=== PATIENT | male | born 2000 ===

== ENCOUNTER 2024-10-27 14:12 | Inpatient (IN) | payer OTHER ==
[~2024-10-27] VITALS: Wt 56.7 kg
[2024-10-27] MEDS ORDERED: HydrOXYzine Pamoate 50 MG Cap PO PRN (14:35)
[2024-10-27] MEDS ORDERED: Melatonin 3 MG Tab PO PRN (14:35)
[2024-10-27] MEDS ORDERED: LORazepam 2 MG Tab PO PRN (14:35)
[2024-10-27] MEDS ORDERED: LORazepam 2 MG/ML 1ML Injection IM PRN ×2 (14:35→16:10)
[2024-10-27] MEDS ORDERED: Ibuprofen 600 MG Tab PO PRN (14:35)
[2024-10-27] MEDS ORDERED: Calcium Carbonate 500 MG Tab Chew PO PRN (14:40)
[2024-10-27] MEDS ORDERED: DiphenhydrAMINE HCl 50 MG/ML 1ML Vial IM PRN (14:40)
[2024-10-27] MEDS ORDERED: Polyethylene Glycol 3350 17 gm PO PRN (14:40)
[2024-10-27] MEDS ORDERED: Ondansetron 4 MG SoluTab MM PRN (14:40)
[2024-10-27] MEDS ORDERED: TraZODone HCl 50 MG Tab PO PRN (14:40)
[2024-10-27] MEDS ORDERED: DiphenhydrAMINE HCl 50 MG Cap PO PRN (14:40)
[2024-10-27] MEDS ORDERED: OLANZapine ODT 10 MG Tab MM PRN (14:40)
[2024-10-27] MEDS ORDERED: Haloperidol 5 MG Tab PO PRN (14:45)
[2024-10-27] MEDS ORDERED: Haloperidol Lactate Inj. 5 MG/ML Injection IM PRN (14:45)
[2024-10-27] MEDS ORDERED: Acetaminophen 325 MG TABLET PO PRN (14:45)
[2024-10-27] MEDS ORDERED: Aluminum Hydroxide 320MG/5ML 473 ML PO PRN (14:45)
[2024-10-27] MEDS ORDERED: SERT50 PO (16:35)
[2024-10-27] MEDS ORDERED: Nicotine Polacrilex 2 MG Gum PO PRN (17:20)
--- NOTE | 2024-10-27 17:58 | NUR ---
SHIFT SUMMARY PT PLEASANT AND COOPERATIVE. DENIES SI, HI, AVTH AT THIS TIME. PT ARRIVED ON UNIT AT 1600, INTERACTING W/ STAFF AND SITTING IN DAYROOM PLAYING SWITCH/WATCHING TV. PT TOOK HOT SHOWER. PT STATES HE USES CANE TO WALK "USUALLY", BUT IS ABLE TO AMBULATE FINE INDEPENDENTLY, PT HAS NOT BEEN USING RAIL OR FALLEN WHILE WALKING. 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 PT DENIED TAKING ANY MEDICATIONS FOR THEM AND HIS LAST ONE WAS "A MONTH AGO". PT STATES TRIGGERING EVENT FOR SI WAS BREAKING UP W/ GIRLFRIEND, PENDING LEGAL TROUBLES, AND HOMELESSNESS.
[2024-10-27 18:22] VITALS: BP 128/75
[2024-10-27 20:19] VITALS: BP 114/72
--- NOTE | 2024-10-28 05:17 | NUR ---
SHIFT SUMMARY Pt is A&O, calm, cooperative, eye contact is appropriate. Pt s stated mood is hell, affect is constricted. Pt denies HI and all hallucinations. Pt endorses having fleeting SI thoughts and promised to contact staff should these thoughts become problematic. Pt endorses knee pain 3/10w DT an injury. He has an MRI scheduled in the near future to determine the damage. Pt stated that the outreach program that placed him in his current motel room is shutting down because of funding losses and that they are trying to find a more permanent housing solution in an apartment. Pt was up to the activity room for snack, but otherwise remained in his room the entire shift. Pt remains on q15m safety checks per unit protocol.
[2024-10-28 06:46] LABS: CHOL/HDL RATIO 3.2; Cholesterol 181 mg/dL (50-200); HDL Cholesterol 57 mg/dL (>39); LDL/HDL RATIO 1.9; Low Density Lipoprotein Chol 106 mg/dL (0-110); Triglycerides 91 mg/dL (30-140); Very Low Density Lipoprot Chol 18 mg/dL (6-28)
[2024-10-28] MEDS ORDERED: Multivitamins 1 Tab PO SCH ×2 (09:00)
[2024-10-28] MEDS ORDERED: Sertraline HCl 50 MG Tab PO SCH (09:00)
[2024-10-28 09:15] VITALS: BP 108/66
[2024-10-28] MEDS ORDERED: Nicotine 14 MG PATCH TOP SCH (09:25)
--- NOTE | 2024-10-28 16:36 | NUR ---
SHIFT SUMMARY PT AxOx4. PLEASANT AND COOPERATIVE WITH CARE. PT DENIES SI/HI AND AVTH THIS AM, REPORTED "GOOD, BUT TIRED" MOOD. PATIENT HAS BEEN FOLLOWING TREATMENT PLAN THIS SHIFT INCLUDING TAKING MEDICATION PRESCRIBED, ATTENDING ALL MILIEU THERAPY GROUPS AND MINGLING APPROPRIATELY WITH PEERS/STAFF. HE REQUESTED IBUPROFEN FOR KNEE PAIN x1 WITH REPORTED RELIEF AFTER ADMINISTRATION. PT IS CURRENTLY SITTING IN GROUP ROOM WATCHING TV. DENIES ANY NEEDS AT THIS TIME.
[2024-10-28 20:12] VITALS: BP 110/64
[2024-10-28] MEDS ORDERED: OLANZapine 5 MG Tab PO SCH (21:00)
--- NOTE | 2024-10-29 05:47 | NUR ---
SHIFT SUMMARY Pt is A&O, calm, cooperative, eye contact is appropriate. Pt s stated mood is good, affect is constricted. Pt denies SI, HI, and hallucinations, reiterating that he is no longer having fleeting suicidal thoughts. Pt endorses right knee pain 6/10w and received PRN APAP with his HS meds, which was effective. Pt was active on the milieu during the evening, watching TV and pleasantly interacting with staff and peers. Pt is on q15m safety checks per unit protocol.
[2024-10-29 08:55] VITALS: BP 113/69
[2024-10-29] MEDS ORDERED: Nicotine Polacrilex 2 MG Gum PO PRN ×2 (16:00)
--- NOTE | 2024-10-29 16:58 | NUR ---
SHIFT SUMMARY PT AxOx4. PLEASANT AND COOPERATIVE WITH CARE. THE PATIENT DENIES SI/HI AND AVTH AND REPORTS HIS MOOD HAS BEEN IMPROVING SINCE HE GOT HERE. PT HAS BEEN FOLLOWING TREATMENT PLAN INCLUDING TAKING MEDICATIONS PRESCRIBED, ATTENDING ALL MILIEU THERAPY GROUPS WELL MINGLING APPROPRIATELY ON THE UNIT WITH PEERS/STAFF. PT IS CURRENTLY SITTING IN GROUP ROOM WATCHING TV WITH OTHERS. HE DENIES ANY NEEDS AT THIS TIME.
[2024-10-29 19:34] VITALS: BP 115/66
--- NOTE | 2024-10-30 04:16 | NUR ---
SHIFT SUMMARY: PATIENT WAS IN THE MILIEU WITH ROOMMATE TALKING AT THE BEGINNING OF THE SHIFT. HE WAS PLEASANT AND INTERACTING APPROPRIATELY AND LINEARLY. HE WAS ABLE TO VERBALIZE NEEDS AND CONCERNS. HE STATED THAT HE HAD A "GREAT DAY" AND HAD MADE A NEW FRIEND, HIS ROOMMATE. HE WAS COMPLIANT WITH EVENING MEDICATIONS. HE DENIED SUICIDAL IDEATION, THOUGHTS OF SELF HARMING, AND A/V HALLUCINATIONS. HE REMAINED UP FOR A TIME AFTER SNACK AT 2030, WATCHING THE TELEVISION. HE THEN WENT TO HIS ROOM, TALKED WITH HIS ROOMMATE FOR A TIME, THEN WAS NOTED TO BE IN BED RESTING WITH EYES CLOSED AND RESPIRATIONS CONFIRMED FOR THE REMAINDER OF THE SHIFT. CONTINUING TO MONITOR FOR SAFETY WITH Q15 MINUTE CHECKS.
[2024-10-30 08:23] VITALS: BP 104/64
[2024-10-30] MEDS ORDERED: Nicotine 21 MG PATCH TOP SCH (09:15)
--- NOTE | 2024-10-30 17:29 | NUR ---
SHIFT SUMMARY NO ACUTE EVENTS TODAY. PT DENIES SI, HI, AVTH. PLEASANT AND COOPERATIVE. TAKING MEDICATIONS ORDERED, INTERACTING W/ PEERS AND STAFF, AND GOING TO GROUPS. ATE MEALS DURING MEALTIME AND HAS BEEN IN DAYROOM WHEN OPEN, PLAYING VIDEO GAMES.
[2024-10-30 19:29] VITALS: BP 111/65
--- NOTE | 2024-10-31 04:18 | NUR ---
SHIFT SUMMARY: PATIENT WAS UP IN THE DINING ROOM AT THE BEGINNING OF THE SHIFT, FINISHING HIS DINNER. HE THEN CAME OUT IN THE MILIEU. HE WAS PLAYED ON THE [employer] SWITCH AND SITTING NEAR THE TELEVISION. HE DENIED SUICIDAL IDEATION, THOUGHTS OF SELF HARMING AND A/V HALLUCINATIONS. HE STATED THAT HE HAD A "GOOD DAY. IT WAS HARD WHEN FABIO LEFT, BUT WE ARE GOING TO STAY FRIENDS." HE HAD NO ISSUES OR CONCERNS. HE WAS ABLE TO ANSWER QUESTIONS IN A LINEAR MANNER. HE PARTICIPATED IN SNACK AND WRAP UP GROUP AT 2100, AND WAS COMPLIANT WITH EVENING MEDICATIONS. HE WANTED TO BE SURE THAT "I CAN HAVE THE SAME MEDICATIONS WHEN I GO HOME". HE WAS ADVISED TO TALK TO THE DOCTOR ABOUT IT. HE STAYED UP AND PLAYED SWITCH IN THE DAY ROOM AGAIN, AND WHEN IT CLOSED, HE WENT TO THE SENSORY ROOM WITH THE SWITCH FOR A TIME. HE THEN WENT TO HIS ROOM, WHERE HE WAS NOTED TO BE RESTING QUIETLY WITH EYES CLOSED AND RESPIRATIONS CONFIRMED. CONTINUING TO MONITOR FOR SAFETY WITH Q15 MINUTE CHECKS.
--- NOTE | 2024-10-31 08:28 | NUR ---
IMPORTANT MENTAL HEALTH DISCHARGE APPOINTMENT Patient is scheduled to meet with the [facility] crisis team for a post-hospital follow up appointment on November 11, 2024 at 1330 // [address] [place], [place] [address] // [phone] SW entered information into patient's discharge packet
[2024-10-31 09:03] VITALS: BP 116/63
--- NOTE | 2024-10-31 17:33 | NUR ---
SHIFT SUMMARY NO ACUTE EVENTS TODAY. PT DENIES SI, HI, AVTH. INTERACTING W/ PEERS AND STAFF. PLEASANT AND COOPERATIVE. WENT TO GROUP, MEAL TIMES, AND IS NOW PLAYING SWITCH IN THE DAYROOM.
[2024-10-31] MEDS ORDERED: OLAN5 PO (17:48)
[2024-10-31] MEDS ORDERED: SERT50 PO (17:49)
[2024-10-31 19:20] VITALS: BP 115/63
--- NOTE | 2024-11-01 04:32 | NUR ---
SHIFT SUMMARY: PATIENT WAS IN THE DINING ROOM AT THE BEGINNING OF SHIFT, FINISHING HIS DINNER. HE CAME OUT AND WAS PLAYING ON THE [employer] SWITCH IN THE DAY ROOM. HE WAS ABLE TO ANSWER ASSESSMENT QUESTIONS IN AN ORGANIZED AND LINEAR MANNER. HE STATED THAT HE IS "EXCITED TO LEAVE TOMORROW" AND THAT "I THINK THIS PLACE REALLY HELPED ME". HE DENIED SUICIDAL IDEATION, THOUGHTS OF SELF HARMING AND A/V HALLUCINATIONS. HE STATED THAT HE "LEARNED NEW WAYS [employer]" AND "I WILL USE THEM IN MY LIFE". 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 HE WAS COMPLIANT WITH EVENING MEDICATIONS. HE PARTICIPATED IN SNACK AND WRAP UP GROUP AT 2029. HE WENT BACK TO THE DAY ROOM AND PLAYED MORE [employer], THEN WENT TO HIS ROOM, WHERE HE WAS NOTED TO BE RESTING QUIETLY WITH EYES CLOSED AND RESPIRATIONS CONFIRMED FOR THE REMAINDER OF THE SHIFT. CONTINUING TO MONITOR FOR SAFETY WITH Q15 MINUTE CHECKS.
--- NOTE | 2024-11-01 07:47 | NUR ---
IMPORTANT DISCHARGE INFORMATION PATIENT TO BE DISCHARGED TODAY 11/01/24 AROUND 1PM. TRANSPORT TO TAKE HIM BACK TO [address] [place] [address] VIA HIS REQUEST. TRIP TICKET # [id number] FOLLOW UP APPOINTMENTS WITH: PCP DR. GRIFFITH ON 11/13/24 AT 1:45PM [facility]: [facility]
[2024-11-01 09:01] VITALS: BP 120/67
--- NOTE | 2024-11-01 10:37 | NUR ---
IMPORTANT MEDICATION MANAGEMENT APPOINTMENT Patient is scheduled to meet with Shaquille Cordon MD for medication management on December 06, 2024 at 1030 // [address] [place] [id number] // [phone] DONNA entered information into patient's discharge packet
--- NOTE | 2024-11-01 13:19 | NUR ---
KITTY NOTE PT DC FROM [facility] AT 1308, BACK TO [place] VIA SECURE TRANSPORT. PT STATED HE CLEARLY UNDERSTANDS ALL OF THE SCHEDULED APPTS, THEY ARE CLOSE TO WHERE HE LIVES. HE HAS A ROOM AT A [facility] IN [place] THROUGH THE END OF THIS MONTH. ALL BELONGINGS RETURNED.
== END 2024-11-01 13:08 | disposition home or self-care (01) | DRG 885 ==
LOC: BHU 14:12
PROVIDERS: ADMIT Psychiatry & Neurology Psychiatry
DX: F33.2 Major depressive disorder, recurrent severe without psychotic features (principal); Z59.01 Sheltered homelessness; F43.10 Post-traumatic stress disorder, unspecified; Z88.2 Allergy status to sulfonamides; Z79.899 Other long term (current) drug therapy
CPT/HCPCS: 36415; 80061; 83036; A9270